=== PATIENT | female | born 2000 | race Caucasian/White ===

== ENCOUNTER → 2021-05-04 | Outpatient (CLI) | payer OTHER ==
[~2021-05-04] MED LIST: ACETAMINOPHEN650 M2 PO; AUGMENTIN TAB875 MG PO; LORTAB 7.5-3251 EACH PO; MIRALAX17 GM PO; PHENERGAN 25 MG25 M1 PO
== END ==
LOC: KOH-I 10:41
DX: M79.89 Other specified soft tissue disorders (principal)
CPT/HCPCS: 76604

== ENCOUNTER → 2021-05-24 | Day surgery (SDC) | payer OTHER ==
[~2021-05-24] MED LIST changes: +VITAMIN D21250 MCG PO
== END | disposition home or self-care (01) ==
LOC: OR 06:10
DX: D17.1 Benign lipomatous neoplasm of skin and subcutaneous tissue of trunk (principal); K76.0 Fatty (change of) liver, not elsewhere classified; E55.9 Vitamin D deficiency, unspecified; K82.4 Cholesterolosis of gallbladder; Z90.49 Acquired absence of other specified parts of digestive tract; Z20.822 Contact with and (suspected) exposure to COVID-19
CPT/HCPCS: 84703; J0690; J1100; J1885; J2001; J2250; J2405; J2704; J3010; J7120

== ENCOUNTER 2021-06-13 09:52 | Emergency (ER) | payer OTHER ==
[2021-06-13 11:08] LABS: BUN/CREATININE RATIO 9 (0-10)
[2021-06-13 11:49] LABS: HEMOGLOBIN 12.7 gm/dl (12.3-15.3); RED BLOOD COUNT 4.22 M/UL (4.00-5.10); WHITE BLOOD COUNT 7.4 K/UL (4.5-11.0)
== END 2021-06-13 12:29 | disposition home or self-care (01) ==
LOC: ER1 09:52
PROVIDERS: Emergency Medicine
DX: R07.9 Chest pain, unspecified (principal); E87.6 Hypokalemia; Z90.49 Acquired absence of other specified parts of digestive tract
CPT/HCPCS: 71046; 80053; 82550; 82553; 84484; 84703; 85025; 85379; 93005; 99285